=== PATIENT | female | born 1955 | race Caucasian/White ===

== ENCOUNTER 2022-12-24 14:31 | Inpatient (IN) | payer MEDICAID, OTHER ==
[~2022-12-24] VITALS: Ht 162.6 cm; Wt 77.6 kg
[2022-12-24 15:04] VITALS: BP 145/82; PULSE 94; RESP 16; TEMP 97.7; O2SAT 98
[2022-12-24] MEDS ORDERED: ASPIRIN 325 MG TAB PO ONE (16:00)
[2022-12-24 16:06] LABS: BASOPHILS # (AUTO) 0.1 K/uL (0.00-0.22); BASOPHILS % (AUTO) 0.7 % (0.0-2.0); EOSINOPHILS # (AUTO) 0.2 K/uL (0-0.4); EOSINOPHILS % (AUTO) 2.4 % (0.0-4.0); HEMATOCRIT 39.3 % (36-48); HEMOGLOBIN 13.1 g/dL (12.0-16.0); LYMPHOCYTES # (AUTO) 1.6 K/uL (2.5-16.5); LYMPHOCYTES % (AUTO) 20.2 % (20.5-51.1); MEAN CORPUSCULAR HEMOGLOBIN 30 pg (27-31); MEAN CORPUSCULAR HGB CONC 33 g/dL (33-37); MEAN CORPUSCULAR VOLUME 89.6 fL (80-94); MONOCYTES # (AUTO) 0.9 K/uL (0.8-1.0); MONOCYTES % (AUTO) 11.9 % (1.7-9.3); NEUTROPHILS % (AUTO) 64.8 % (42.2-75.2); PLATELET COUNT (AUTO) 211 K/uL (140-450); RED BLOOD CELL COUNT(AUTO) 4.39 MIL/uL (4.20-5.40); RED CELL DISTRIBUTION WIDTH 14.5 % (11.6-13.7); WHITE BLOOD COUNT (AUTO) 7.7 K/uL (4.8-10.8)
[2022-12-24 16:35] LABS: ALBUMIN 3.7 g/dL (3.4-5.0); ANION GAP 12.6 (8-16); CALCIUM 8.8 mg/dL (8.5-10.1); CARBON DIOXIDE 26.3 mmol/L (21-32); CREATININE 0.9 mg/dL (0.6-1.3); POTASSIUM 3.9 mmol/L (3.5-5.1); TOTAL BILIRUBIN 0.3 mg/dL (0.0-1.0); TOTAL PROTEIN, SERUM 7.6 g/dL (6.4-8.2)
[2022-12-24] MEDS ORDERED: ENAL-270 PO (20:40)
[2022-12-24] MEDS ORDERED: SYN.05 PO (20:40)
[2022-12-24] MEDS ORDERED: OMEP40EC23 PO (20:40)
[2022-12-24] MEDS ORDERED: ATOR20TA40 PO (20:40)
[2022-12-24] MEDS ORDERED: DOCUSATE SODIUM 100 MG GELCAP PO PRN (20:45)
[2022-12-24] MEDS ORDERED: ONDANSETRON 4 MG/2 ML VIAL IM/IVP PRN (20:45)
[2022-12-24] MEDS ORDERED: ZOLPIDEM 5 MG TAB PO PRN (20:45)
[2022-12-24] MEDS ORDERED: HYDROcodone/APAP 7.5/325 MG 1 TAB PO PRN (20:45)
[2022-12-24] MEDS ORDERED: guaiFENesin DM 200/20 MG-10 ML 10 ML UDC PO PRN (20:45)
[2022-12-24] MEDS ORDERED: POTASSIUM CHLORIDE 10 MEQ TABER PO PRN (20:45)
[2022-12-24] MEDS ORDERED: ACETAMINOPHEN 325 MG TAB PO PRN (20:45)
[2022-12-24] MEDS ORDERED: NITROGLYCERIN 0.4 MG TAB SL PRN (20:50)
[2022-12-24 21:47] VITALS: PULSE 72; RESP 20; O2SAT 95
[2022-12-24 21:51] VITALS: PULSE 74
[2022-12-25] VITALS: PULSE 74
[2022-12-25 04:00] VITALS: PULSE 67
[2022-12-25] MEDS: NACL 0.9% 1,000 ML IV SCH ×3 (06:00→21:28)
[2022-12-25 06:48] LABS: BASOPHILS % (AUTO) 0.8 % (0.0-2.0); EOSINOPHILS # (AUTO) 0.2 K/uL (0-0.4); EOSINOPHILS % (AUTO) 3.3 % (0.0-4.0); HEMATOCRIT 40.2 % (36-48); HEMOGLOBIN 13.4 g/dL (12.0-16.0); LYMPHOCYTES # (AUTO) 1.5 K/uL (2.5-16.5); LYMPHOCYTES % (AUTO) 26.1 % (20.5-51.1); MEAN CORPUSCULAR HEMOGLOBIN 30 pg (27-31); MEAN CORPUSCULAR HGB CONC 33 g/dL (33-37); MEAN CORPUSCULAR VOLUME 89.8 fL (80-94); MONOCYTES # (AUTO) 0.9 K/uL (0.8-1.0); MONOCYTES % (AUTO) 16.4 % (1.7-9.3); NEUTROPHILS # (AUTO) 3.1 K/uL (1.8-7.7); NEUTROPHILS % (AUTO) 53.4 % (42.2-75.2); PLATELET COUNT (AUTO) 198 K/uL (140-450); RED BLOOD CELL COUNT(AUTO) 4.48 MIL/uL (4.20-5.40); RED CELL DISTRIBUTION WIDTH 14.7 % (11.6-13.7); WHITE BLOOD COUNT (AUTO) 5.8 K/uL (4.8-10.8)
[2022-12-25 06:55] LABS: ALBUMIN 3.5 g/dL (3.4-5.0); ANION GAP 11.1 (8-16); CALCIUM 8.6 mg/dL (8.5-10.1); CARBON DIOXIDE 26.9 mmol/L (21-32); CREATININE 0.8 mg/dL (0.6-1.3); TOTAL BILIRUBIN 0.5 mg/dL (0.0-1.0); TOTAL PROTEIN, SERUM 7.3 g/dL (6.4-8.2)
[2022-12-25] MEDS: LEVOTHYROXINE 0.05 MG TAB PO SCH (07:31)
[2022-12-25 08:00] VITALS: BP 133/82; PULSE 70; PULSE 73; RESP 18; TEMP 97.5; O2SAT 100
[2022-12-25] MEDS: ENALAPRIL 5 MG TAB PO SCH ×2 (09:00→09:47)
[2022-12-25] MEDS ORDERED: NON-FORMULARY ITEM (Omeprazole* (Prilosec*) 1 CAP) PO SCH (09:00)
[2022-12-25] MEDS: ASPIRIN 81 MG TAB.CHEW PO SCH (09:42)
[2022-12-25] MEDS: ATORVASTATIN 20 MG TAB PO SCH (09:42)
[2022-12-25] MEDS: PANTOPRAZOLE 40 MG TABEC PO SCH (09:42)
[2022-12-25 12:00] VITALS: BP 132/71; PULSE 70; PULSE 74; RESP 18; TEMP 98.3; O2SAT 97
[2022-12-25 16:00] VITALS: BP 115/62; PULSE 77; RESP 18; TEMP 98.1; O2SAT 99
[2022-12-25 20:00] VITALS: BP 126/66; PULSE 70; PULSE 75; RESP 18; RESP 20; TEMP 98.8; O2SAT 75
[2022-12-26 04:00] VITALS: BP 120/60; PULSE 78; RESP 20; TEMP 97.8; O2SAT 100
[2022-12-26] MEDS: LEVOTHYROXINE 0.05 MG TAB PO SCH (05:48)
[2022-12-26 06:48] LABS: BASOPHILS % (AUTO) 0.7 % (0.0-2.0); EOSINOPHILS # (AUTO) 0.1 K/uL (0-0.4); EOSINOPHILS % (AUTO) 2.4 % (0.0-4.0); HEMATOCRIT 38.2 % (36-48); HEMOGLOBIN 12.7 g/dL (12.0-16.0); LYMPHOCYTES # (AUTO) 1.9 K/uL (2.5-16.5); LYMPHOCYTES % (AUTO) 30.7 % (20.5-51.1); MEAN CORPUSCULAR HEMOGLOBIN 30 pg (27-31); MEAN CORPUSCULAR HGB CONC 33 g/dL (33-37); MEAN CORPUSCULAR VOLUME 89.5 fL (80-94); MONOCYTES # (AUTO) 0.9 K/uL (0.8-1.0); MONOCYTES % (AUTO) 15.2 % (1.7-9.3); NEUTROPHILS # (AUTO) 3.2 K/uL (1.8-7.7); PLATELET COUNT (AUTO) 217 K/uL (140-450); RED BLOOD CELL COUNT(AUTO) 4.27 MIL/uL (4.20-5.40); RED CELL DISTRIBUTION WIDTH 14.4 % (11.6-13.7); WHITE BLOOD COUNT (AUTO) 6.2 K/uL (4.8-10.8)
[2022-12-26 06:56] LABS: ALBUMIN 3.3 g/dL (3.4-5.0); ANION GAP 12.6 (8-16); CALCIUM 8.1 mg/dL (8.5-10.1); CARBON DIOXIDE 24.8 mmol/L (21-32); CREATININE 0.8 mg/dL (0.6-1.3); POTASSIUM 3.4 mmol/L (3.5-5.1); TOTAL BILIRUBIN 0.5 mg/dL (0.0-1.0); TOTAL PROTEIN, SERUM 6.9 g/dL (6.4-8.2)
[2022-12-26 08:00] VITALS: BP 128/70; PULSE 68; RESP 18; TEMP 99.1; O2SAT 99
[2022-12-26] MEDS: ASPIRIN 81 MG TAB.CHEW PO SCH (08:34)
[2022-12-26] MEDS: PANTOPRAZOLE 40 MG TABEC PO SCH (08:34)
[2022-12-26] MEDS: ENALAPRIL 5 MG TAB PO SCH (08:34)
[2022-12-26] MEDS: ATORVASTATIN 20 MG TAB PO SCH (08:34)
[2022-12-26] MEDS ORDERED: NITR0.4T2 SL (09:27)
[2022-12-26] MEDS ORDERED: ASPI-1822 PO (09:27)
[2022-12-26 11:16] VITALS: BP 128/70; PULSE 68; RESP 18; TEMP 99.1
== END 2022-12-26 11:59 | disposition home or self-care (01) | DRG 720 ==
LOC: MED 14:31 → MTU 20:44
PROVIDERS: ADMIT Student in an Organized Health Care Education/Training Program; ATTEND Student in an Organized Health Care Education/Training Program
DX: A41.9 Sepsis, unspecified organism (principal); J15.6 Pneumonia due to other Gram-negative bacteria; I25.119 Atherosclerotic heart disease of native coronary artery with unspecified angina pectoris; E78.5 Hyperlipidemia, unspecified; E03.9 Hypothyroidism, unspecified; F17.200 Nicotine dependence, unspecified, uncomplicated; Z90.49 Acquired absence of other specified parts of digestive tract; Z90.710 Acquired absence of both cervix and uterus
CPT/HCPCS: 36415; 71045; 80053; 83880; 84484; 85025; 87081; 93005; 99285; J0696; J7060; Q0092